=== PATIENT | male | born 1995 | race Two or more races ===

== ENCOUNTER 2018-06-04 15:45 | Emergency (ER) | payer OTHER ==
[~2018-06-04] VITALS: Ht 170.2 cm; Wt 81.2 kg
[2018-06-04 16:00] VITALS: BP 133/88
== END 2018-06-04 17:32 | disposition home or self-care (01) ==
LOC: EDBD 15:56 → ER 15:56
DX: B35.6 Tinea cruris (principal)

== ENCOUNTER 2020-10-22 14:22 | Emergency (ER) | payer BC, OTHER ==
[~2020-10-22] VITALS: Ht 170.2 cm; Wt 79.8 kg
[2020-10-22 18:32] VITALS: BP 137/85
== END 2020-10-22 19:02 | disposition home or self-care (01) ==
LOC: ER 14:23
DX: J20.9 Acute bronchitis, unspecified (principal); Z20.822 Contact with and (suspected) exposure to COVID-19
CPT/HCPCS: 36415; 71045; 87426

== ENCOUNTER 2020-10-29 06:31 | Emergency (ER) | payer BC ==
[~2020-10-29] VITALS: Ht 167.6 cm; Wt 78.0 kg
[2020-10-29] MEDS ORDERED: THIAMINE 100mg/ml INJ (200mg/2ml VIAL) IV ONE (07:00)
[2020-10-29] MEDS ORDERED: SODIUM CHLORIDE 0.9% 1,000 ML IV ONE ×2 (07:00)
[2020-10-29 07:07] LABS: Basophils # (auto) 0 10 ^3/uL (0-0.2); Basophils % (auto) 0.8 % (0.0-2.0); Eosinophils # (auto) 0.1 10 ^3/uL (0-0.8); Eosinophils % (auto) 1.2 % (0.0-7.0); Hemoglobin 16.6 g/dL (13.5-17.5); Lymphocytes # (auto) 1.2 10 ^3/uL (0.4-5.4); Lymphocytes % (auto) 22.4 % (10.0-50.0); Mean Corpuscular Hemoglobin 29.7 pg (28.0-32.0); Mean Corpuscular Hgb Conc. 36.1 g/dL (32.0-36.0); Mean Corpuscular Volume 82.2 fL (80.0-100.0); Monocytes # (auto) 0.3 10 ^3/uL (0-1.3); Monocytes % (auto) 6.3 % (0.0-12.0); Neutrophils # (auto) 3.8 10 ^3/uL (1.6-8.6); Neutrophils % (auto) 69.3 % (37.0-80.0); Nucleated Red Blood Cells % 0.7 %; White Blood Cell 5.4 10^3/uL (4.4-10.8)
[2020-10-29 07:16] LABS: Chloride 108 mmol/L (98-107); Potassium 3.4 mmol/L (3.5-5.1); Sodium 140 mmol/L (136-145)
[2020-10-29 07:28] LABS: Alanine Aminotransferase 48 U/L (16-61); Albumin 4.2 g/dL (3.4-5.0); Alkaline Phosphatase 93 U/L (45-117); Anion Gap 8 (5-15); Aspartate Aminotransferase 19 U/L (15-37); BUN/Creatinine Ratio 8.1; Bilirubin, Total 0.5 mg/dL (0.2-1.0); Blood Urea Nitrogen 7 mg/dL (7-18); Calcium 9.7 mg/dL (8.5-10.1); Carbon Dioxide 24 mmol/L (21-32); GFR African American 138 mL/min; GFR Non-African American 114 mL/min; Glucose 108 mg/dL (74-106); Total Protein 8.4 g/dL (6.4-8.2)
[2020-10-29 13:20] VITALS: BP 136/93
== END 2020-10-29 13:29 | disposition home or self-care (01) ==
LOC: ER 06:31
DX: R07.89 Other chest pain (principal); F10.129 Alcohol abuse with intoxication, unspecified; Y90.9 Presence of alcohol in blood, level not specified
CPT/HCPCS: 36415; 71045; 80053; 80320; 84484; 85025; 93005; 96361; 96374; 99285; J3411; J7030

== ENCOUNTER 2022-02-04 13:27 | Emergency (ER) | payer BC ==
[~2022-02-04] VITALS: Ht 167.6 cm; Wt 78.8 kg
[2022-02-04 14:40] LABS: Basophils # (auto) 0.1 10 ^3/uL (0-0.2); Eosinophils # (auto) 0.1 10 ^3/uL (0-0.8); Eosinophils % (auto) 2.8 % (0.0-7.0); Hematocrit 47.3 % (41.0-53.0); Hemoglobin 16.4 g/dL (13.5-17.5); Lymphocytes # (auto) 1.2 10 ^3/uL (0.4-5.4); Lymphocytes % (auto) 22.2 % (10.0-50.0); Mean Corpuscular Hemoglobin 29.3 pg (28.0-32.0); Mean Corpuscular Hgb Conc. 34.7 g/dL (32.0-36.0); Mean Corpuscular Volume 84.3 fL (80.0-100.0); Monocytes # (auto) 0.5 10 ^3/uL (0-1.3); Monocytes % (auto) 9.4 % (0.0-12.0); Neutrophils # (auto) 3.4 10 ^3/uL (1.6-8.6); Neutrophils % (auto) 64.6 % (37.0-80.0); Red Blood Cells 5.61 10^6/uL (4.5-5.90); Red Cell Distribution Width 12.7 % (11.8-14.3); White Blood Cell 5.2 10^3/uL (4.4-10.8)
[2022-02-04 14:53] LABS: Nucleated Red Blood Cells % 5.1 %
[2022-02-04 15:00] LABS: Albumin 4.2 g/dL (3.4-5.0); BUN/Creatinine Ratio 15.1; Calcium 9.2 mg/dL (8.5-10.1); Potassium 3.6 mmol/L (3.5-5.1)
[2022-02-04 15:03] LABS: Bilirubin, Total 0.7 mg/dL (0.2-1.0); Total Protein 7.6 g/dL (6.4-8.2)
[2022-02-04 17:19] VITALS: BP 130/82
[2022-02-04 19:50] LABS: Urine Specific Gravity 1.007 (1.001-1.035)
[2022-02-04 19:51] LABS: Urine Blood Negative /uL (Negative)
== END 2022-02-04 17:20 | disposition home or self-care (01) ==
LOC: ER 13:27
DX: R10.31 Right lower quadrant pain (principal); R19.7 Diarrhea, unspecified
CPT/HCPCS: 36415; 80053; 81003; 85025

== ENCOUNTER 2023-03-02 13:20 | Emergency (ER) | payer MEDICAID, OTHER ==
[~2023-03-02] VITALS: Ht 170.2 cm; Wt 76.5 kg
[~2023-03-02 13:20] MED LIST: CEPH500T PO; IBUP1TAB5 PO
[2023-03-02 17:16] VITALS: BP 125/80; PULSE 56; RESP 18; TEMP 98.1; O2SAT 100
== END 2023-03-02 17:18 | disposition home or self-care (01) ==
LOC: ER 13:20
DX: S01.01XD Laceration without foreign body of scalp, subsequent encounter (principal); Z48.00 Encounter for change or removal of nonsurgical wound dressing; Z79.899 Other long term (current) drug therapy; X58.XXXD Exposure to other specified factors, subsequent encounter

== ENCOUNTER 2023-03-12 11:00 | Emergency (ER) | payer MEDICAID ==
[~2023-03-12] VITALS: Ht 170.2 cm; Wt 76.4 kg
[2023-03-12 11:43] VITALS: BP 128/80; PULSE 84; RESP 16; TEMP 97; O2SAT 100
== END 2023-03-12 11:52 | disposition home or self-care (01) ==
LOC: ER 11:00
DX: S01.01XD Laceration without foreign body of scalp, subsequent encounter (principal); Z79.1 Long term (current) use of non-steroidal anti-inflammatories (NSAID); Z79.899 Other long term (current) drug therapy; X58.XXXD Exposure to other specified factors, subsequent encounter